=== PATIENT | male | born 1940 | race Caucasian/White ===

== ENCOUNTER → 2020-06-19 | Outpatient (CLI) | payer OTHER ==
[~2020-06-19] MED LIST: ASPIR 8181 MG PO; ATORVASTATIN CA40 MG PO; AVODART0.5 MG PO; CALCIUM 600 +1 EAC7 PO; CENTRUM SILVER1 EAC2 PO; CLONAZEPAM 0.50.5 M1 PO; COLACE100 MG PO; FISH OIL 1,001000 M2 PO; FLOMAX0.4 MG PO; HYDROCODONE-AP1 EAC6 PO; METAMUCIL PAC1 UDPKT PO; NABUMETONE 750750 M1 PO; NEURONTIN 300300 M1 PO; PRINIVIL20 MG PO; PROSCAR 5MG TABL5 MG PO; ROBAXIN 750 MG750 M1 PO; TUMS PO
== END ==
LOC: SJCVCIMAG 13:54
PROVIDERS: ATTEND Nuclear Medicine Nuclear Cardiology
DX: I70.202 Unspecified atherosclerosis of native arteries of extremities, left leg (principal)